=== PATIENT | male | born 1995 | race Caucasian/White ===

== ENCOUNTER 2020-03-02 20:08 | Emergency (ER) | payer OTHER, BC ==
--- NOTE | 2020-03-02 20:26 | ER Document Report ---
ED Medical Screen (RME) - General Stated Complaint: POSSIBLE VOMIT EXPOSURE Time Seen by Provider: 03/02/20 20:19 Notes: Patient is a 24-year-old male who presents to the emergency department after having vomit splashed in his eye just prior to arrival. 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 Patient states that he flushed his eye well after the exposure. Exam: Conjunctiva noninjected. I have greeted and performed a rapid initial assessment of this patient. A comprehensive ED assessment and evaluation of the patient, analysis of test results and completion of medical decision making process will be conducted by an additional ED providers. TRAVEL OUTSIDE OF THE [place] IN LAST 30 DAYS: No Past Medical History Pulmonary Medical History: Reports: Hx Asthma - Immunizations Hx Diphtheria, Pertussis, Tetanus Vaccination: Yes - 2 yrs ago Physical Exam - Vital signs Vitals: Temp Pulse Resp BP Pulse Ox 99.0 F 72 16 148/78 H 97 03/02/20 20:12 03/02/20 20:12 03/02/20 20:12 03/02/20 20:12 03/02/20 20:12 Course - Vital Signs Vital signs: Temp Pulse Resp BP Pulse Ox 99.0 F 72 16 148/78 H 97 03/02/20 20:12 03/02/20 20:12 03/02/20 20:12 03/02/20 20:12 03/02/20 20:12
--- NOTE | 2020-03-02 21:32 | ER Document Report ---
Entered by JANAY HAHN SCRIBE 03/02/202030 Acting as scribe for:JOSH SEYMOUR IV, MD ED Body Fluid Exposure - General Chief Complaint: Body Fluid Exposure Stated Complaint: POSSIBLE VOMIT EXPOSURE Time Seen by Provider: 03/02/20 20:19 Mode of Arrival: Ambulatory Information source: Patient Notes: This 24 year old male patient presents to the ED today with complaints of body fluid exposure that occurred approximately between 1855 and 1900 this evening. 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 He reports that his eye was immediately flushed with x6-7 syringes of saline. Denies any problems with his vision. TRAVEL OUTSIDE OF THE [place] IN LAST 30 DAYS: No - Related Data Allergies/Adverse Reactions: erythromycin base Allergy (Verified 03/02/20 20:31) Past Medical History - General Information source: Patient - Social History Smoking Status: Never Smoker Cigarette use (# per day): No Chew tobacco use (# tins/day): No Smoking Education Provided: No Family History: Reviewed & Not Pertinent Patient has suicidal ideation: No Patient has homicidal ideation: No Pulmonary Medical History: Reports: Hx Asthma - Immunizations Hx Diphtheria, Pertussis, Tetanus Vaccination: Yes - 2 yrs ago Review of Systems - Review of Systems Constitutional: No symptoms reported EENT: See HPI, Other - Vomitus in left eye. denies: Eye pain, Eye discharge, Blurred vision, Tearing, Double vision Cardiovascular: No symptoms reported Respiratory: No symptoms reported Gastrointestinal: No symptoms reported Genitourinary: No symptoms reported Male Genitourinary: No symptoms reported Musculoskeletal: No symptoms reported Skin: No symptoms reported Hematologic/Lymphatic: No symptoms reported Neurological/Psychological: No symptoms reported -: Yes All other systems reviewed and negative Physical Exam - Vital signs Vitals: Temp Pulse Resp BP Pulse Ox 99.0 F 72 16 148/78 H 97 03/02/20 20:12 03/02/20 20:12 03/02/20 20:12 03/02/20 20:12 03/02/20 20:12 - General General appearance: Appears well, Alert In distress: None - HEENT Head: Normocephalic, Atraumatic Eyes: Normal Pupils: PERRL - Respiratory Respiratory status: No respiratory distress Chest status: Nontender Breath sounds: Normal Chest palpation: Normal - Cardiovascular Rhythm: Regular Heart sounds: Normal auscultation Murmur: No Friction rub: No Gallop: None auscultated - Abdominal Inspection: Normal Distension: No distension Bowel sounds: Normal Tenderness: Nontender - Abdomen soft Organomegaly: No organomegaly - Back Back: Normal, Nontender - Extremities General upper extremity: Normal inspection General lower extremity: Normal inspection - Neurological Neuro grossly intact: Yes Orientation: AAOx4 - Psychological Associated symptoms: Normal affect, Normal mood - Skin Skin Temperature: Warm Skin Moisture: Dry Skin Color: Normal Course - Re-evaluation Re-evalutation: 03/02/20 21:47 Case was discussed with patient's prior to, Jaime Tierney, at 2134 hrs. He was informed that we would be testing for rapid HIV checking a hepatitis panel panel and doing a COVID screen. Patient was instructed that he will have to self quarantine for approximately 5 days until results of the COVID 19 screen come back. Antiviral prophylaxis was offered to the patient but the patient declined this. This MD spoke with the clinic assistant for the medical associate, Dr. Gibson. 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 She stated that she will discuss this with Dr. Gibson and give me a call back in regards to whether or not they will be checking for infectious disease with the autopsy. 03/02/20 22:12 Spoke with clinic assistant at medical associate's office again. She took down the patient's name and stated that she would be sure that Dr. Gibson was made aware of the situation and will be instructed to contact supervisor webbing at [employer] on Tuesday, after the holiday. 03/02/20 23:24 Results of ED MSE discussed with patient. Patient is instructed to follow-up with his supervisor webbing in terms of self quarantine and when to return to work. All questions were answered prior to discharge. Emergency signs and symptoms, reasons to return to the emergency department discussed with patient. - Vital Signs Vital signs: Temp Pulse Resp BP Pulse Ox 99 F 72 16 148/78 H 97 03/02/20 20:21 03/02/20 20:12 03/02/20 20:12 03/02/20 20:12 03/02/20 20:12 Discharge - Discharge Clinical Impression: Exposure to blood or body fluid Condition: Good Disposition: HOME, SELF-CARE Additional Instructions: Return to the Emergency Department without delay if any worse. You are instructed to self quarantine until the results of your COVID 19 test are reported to you. HOME CARE INSTRUCTIONS & INFORMATION: Thank you for choosing us for your medical needs. We hope you're satisfied with the care you received. After you leave, you must properly care for your problem and, at the same time, observe its progress. Any condition can change. Some illnesses can change rapidly over hours or days. If your condition worsens, return to the Emergency Department or see your physician promptly. ABOUT YOUR X-RAYS AND EKG'S: If you had an EKG or X-rays taken, they have been read by the Emergency Physician. The X-rays and EKG's will also be read by a Radiologist or Manager Radio within 24 hours. If discrepancies are noted, you will be notified by telephone. Please be certain the ED has a correct telephone number & address where you can be reached. Also, realize that some fractures or abnormalities do not show up on initial X-rays. If your symptoms continue, see your physician. ABOUT YOUR LABORATORY TEST: If you had laboratory tests, the results have been reviewed by the Emergency Physician. Some test results (for example cultures) may not be available for several days. You will be contacted if any test result shows you need additional treatment. Please be certain the ED has a correct telephone number and address where you can be reached. ABOUT YOUR MEDICATIONS: You will receive instructions on how to take your medicine on the prescription label you receive. Additional information may be provided by the Pharmacy. If you have questions afterwards, call the ED for clarification or further instructions. Some prescribed medications may cause drowsiness. Do not perform tasks such as driving a car or operating machinery without consulting your Pharmacist. If you feel you need a refill of pain medication, your condition will need re-evaluation. Please do not call for a refill of any medication. ABOUT YOUR SIGNATURE: Signature of this document acknowledges to followin. Understanding that you received emergency treatment and that you may be released before al medical problems are known or treated. Please be certain the ED has a correct phone number & address where you can be reached. 2. Acknowledgement that you will arrange for follow-up care as recommended. 3. Authorization for the Emergency Physician to provide information to your follow-up Physician in order to maximize your care. AT ANY TIME, IF YOUR SYMPTOMS CHANGE SIGNIFICANTLY OR WORSEN OR YOU DEVELOP NEW SYMPTOMS, RETURN TO THE EMERGENCY DEPARTMENT IMMEDIATELY FOR RE-EVALUATION. OUR GOAL IS TO PROVIDE EXCELLENT MEDICAL CARE! WE HOPE THAT WE HAVE MET YOUR EXPECTATIONS DURING YOUR EMERGENCY DEPARTMENT VISIT AND THAT YOU FEEL YOU HAVE RECEIVED EXCELLENT CARE! Body Fluid Exposure You have had a potentially serious body fluid exposure from another person. Most of the time this type of exposure does not cause any problems. However, several infections can be transmitted this way. The most significant risk is hepatitis or HIV (the virus that causes AIDS). Being seen quickly for medical care is important. Hepatitis B and C viruses cause a serious liver infection. Immunization against Hepatitis B virus can prevent this infection. This requires an immediate dose, then booster doses at 1 and 6 months. The risk of transmitting HIV infection by a single body fluid exposure is very small. Even with high risk exposure (blood directly on mucous membranes from a person known to have HIV infection) the chance of getting infected is less than one in a thousand. Patients with high risk exposures should consider preventive treatment. Zidovudine (ZDV) treatment, or a combination of anti-HIV drugs can reduce the chance of HIV infection significantly. Treatment is usually continued for 4 weeks. Blood tests for HIV should be taken now and repeated at 6 weeks, and again at 3 and 6 months. I personally performed the services described in the documentation, reviewed and edited the documentation which was dictated to the scribe in my presence, and it accurately records my words and actions.
[2020-03-02 23:36] VITALS: BP 137/40
[2020-03-04 06:36] LABS: HEPATITS B SURFACE ANTIGEN Negative (Negative)
[2020-03-04 07:06] LABS: HEPATITIS C VIRUS ANTIBODY <0.1 s/co ratio (0.0-0.9)
== END 2020-03-02 23:37 | disposition home or self-care (01) ==
LOC: ER 20:08
DX: Z77.21 Contact with and (suspected) exposure to potentially hazardous body fluids (principal); Z88.1 Allergy status to other antibiotic agents; J45.909 Unspecified asthma, uncomplicated; Z20.828 Contact with and (suspected) exposure to other viral communicable diseases
CPT/HCPCS: 36415; 80074; 86701; 87635; 99284